=== PATIENT | male | born 1980 | race Caucasian/White ===

== ENCOUNTER 2024-06-30 19:28 | Emergency (ER) | payer MEDICAID, SELFPAY ==
[2024-06-30 19:37] VITALS: BMI 25.7
[2024-06-30 19:38] VITALS: BP 157/89; PULSE 89; RESP 19; TEMP 36.7; O2SAT 98
[2024-06-30 19:42] VITALS: PULSE 84; RESP 19; O2SAT 97
--- NOTE | 2024-06-30 19:47 | XR_ITS ---
Examination: CT brain head without contrast. 2-D sagittal coronal reconstructions Date and time of exam:June 30, 2024 2041 hrs. Indications: Patient fell today with injury to the head, head pain 6 CTDI: vol (mGy):54.7 DLP: (mGycm):1150 Technique: Multiple CT axial sections of the brain have been obtained, 5 mm slice thickness. Contrast has not been administered. 2-D sagittal, coronal reconstructions have been obtained Low dose protocols were performed. One or more of the following dose reduction techniques were used; automated exposure control, adjustment of the mA and/or KV according to patient size, use of iterative reconstruction technique. Findings: No significant ventricular enlargement. Intra-axial or extra-axial hemorrhage density is not seen. No mass effect or midline shift Basal cisterns are not remarkable. Fourth ventricle is midline. Cranial vault intact. Impression: Negative for acute hemorrhage, mass effect or midline shift
--- NOTE | 2024-06-30 19:47 | XR_ITS ---
Examination: AP chest single view Technique one AP portable upright chest single view Exam date and time: June 30, 20242049 hrs. Indications: Vomiting today. Findings: No significant cardiac enlargement No aspiration pneumonia The osseous structures are intact Impression: Negative for aspiration pneumonia
--- NOTE | 2024-06-30 19:50 | EKG_ITS ---
[facility] Test Date: 2024-06-30 Pat Name: ZOILA JUNIOR Department: Room: - Gender: Male Certified Ophthalmic Surgical Assistant: : 1980 Requested By: Indira Myles Order Number: [id number] Reading MD: Indira Myles Measurements Intervals [place] Rate: 71 P: 46 DC: 182 QRS: 5 QRSD: 92 T: 42 QT: 420 QTc: 459 Interpretive Statements SINUS RHYTHM WARNING: DATA QUALITY MAY AFFECT INTERPRETATION Compared to ECG 11/01/2021 12:55:52 Sinus tachycardia no longer present /store/S0/[id number].pdf
--- NOTE | 2024-06-30 19:50 | EDNOTE_ITS ---
ED General RME/HPI General Chief complaint: Alcohol Stated complaint: VOMITING Time Seen by Provider: 06/30/24 19:34 Arrival date/time: 06/30/24 19:28 RME / HPI RME / HPI narrative: 44-year-old male patient with significant history of hypertension, chronic alcoholism, drinking every day, was brought in by EMS for evaluation regarding vomiting. Patient has been having vomiting since earlier today, nonbloody, associated with headache and dizziness. And also sustained ground-level fall. Patient denies any head injury. Patient last alcohol intake was few minutes prior to ER visit. Denies any abdominal pain denies any other complaint. No medications was given prior to arrival. Related Data Home Medications ?Medication ?Instructions ?Recorded ?Confirmed lisinopril 40 mg tablet 40 mg PO QDAY 12/13/1912/12 Previous Rx's ?Medication ?Instructions ?Recorded meclizine 50 mg tablet 50 mg PO BID PRN dizziness # 30 tabs 06/30/24 ondansetron HCl 4 mg tablet 4 mg PO Q8H PRN nausea and 06/30/24 vomiting 5 days #20 tabs Allergies Allergy/AdvReac Type Severity Reaction Status Date / Time aspirin Allergy Unknown Verified 11/01/21 12:30 Review of Systems Review of Systems Narrative Review of Systems: Review of system reviewed and within normal limits except mentioned in HPI ED Exam Narrative Physical exam: VITAL SIGNS: Reviewed. GENERAL APPEARANCE: Alert and interactive, follows commands, no acute distress, actively vomiting HEAD AND FACE: Non-traumatic. ENT: PERRL, pink conjunctivitis, eyelid no trauma, Mucous membrane moist. NECK: Supple, nontender, no nuchal rigidity. CHEST: No tenderness, no crepitus, no paradoxical movement, no retractions. LUNGS: Clear, well ventilated, symmetric, no rales, no wheezing, no ronchi, no stridor, good breath sounds bilaterally. HEART: Regular rate, regular rhythm, no murmur, no gallops. ABDOMEN: Soft, positive bowel sounds, nondistended, no guarding, nontender, no rebound, no masses, RECTAL: Deferred. GENITAL: Deferred. NEUROLOGICAL: Gross motor function intact sensory function intact, Appropriate for age. MUSCULOSKELETAL: low back nontender, full range of motion. EXTREMITIES: Nontender, full range of motion. SKIN: Color pink, dry, no rash, no lacerations, no abrasions, no contusions. LYMPHATICS: Deferred. Course Quality Measures none Orders Category Date Time Status EKG (ED ONLY) *Do not use* NOW Care 06/30/24 19:[address] head/brain wo con Stat Exams 06/30/24 19:47 Completed EKG (ED Only) Stat Exams 06/30/24 19:50 Ordered XR chest 1V Stat Exams 06/30/24 19:47 Completed Alcohol, Blood Medical Stat Lab 06/30/24 20:43 Completed B-Type Natriuretic Peptide Stat Lab 06/30/24 20:43 Completed CBC Stat Lab 06/30/24 20:43 Completed Comprehensive Metabolic Panel Stat Lab 06/30/24 20:43 Completed Magnesium Stat Lab 06/30/24 20:43 Completed Partial Thromboplastin Time Stat Lab 06/30/24 20:43 Completed Prothrombin Time with INR Stat Lab 06/30/24 20:43 Completed Troponin I Stat Lab 06/30/24 20:43 Completed DiphenhydrAMINE INJ [Benadryl Inj] Med 06/30/24 19:49 Discontinued 50 mg IVP X1 ONE Famotidine Inj [Pepcid Inj] Med 06/30/24 19:48 Discontinued 20 mg IVP X1 ONE Meclizine HCl [Antivert] Med 06/30/24 22:18 Discontinued 50 mg PO X1 ONE Metoclopramide Inj [Reglan Inj] Med 06/30/24 19:48 Discontinued 10 mg IVP X1 ONE Sodium Chloride 0.9% 1000 ml [Ns] 1,000 ml Med 06/30/24 19:48 Discontinued IV 999 mls/hr Sodium Chloride 0.9% 1000 ml [Ns] 1,000 ml Med 06/30/24 21:35 Discontinued IV 999 mls/hr cloNIDine HCL [Catapres] Med 06/30/24 22:55 Discontinued 0.2 mg PO X1 ONE Vital Signs Vital signs: Vital Signs Temperature 98.1 F 06/30/24 19:38 Pulse Rate 89 06/30/24 19:38 Respiratory Rate 19 06/30/24 19:38 Blood Pressure 157/89 H 06/30/24 19:38 Pulse Oximetry (%) 98 06/30/24 19:38 Oxygen Delivery Method Room Air 06/30/24 19:38 [facility] Patient data External records reviewed:: None Clinical information provided by:: patient Social determinants that could affect healthcare access:: alcohol use Patient has the following chronic illnesses:: Chronic alcoholism, hypertension How is presenting disease/condition affected by chronic disease/condition?: e xacerbated by Evaluation data The following diagnostics were reviewed and interpreted by me:: lab results, radiology exam(s) and EKG tracing(s) Lab and/or radiology exams considered but not ordered:: None Interpretation Summary: EKG as interpreted by me showed sinus rhythm ventricular at 71 bpm,. OK interval 182 MS, no ST segment elevation depression noted. CT scan of the head came back unremarkable. Chest x-ray also came back normal. CBC within normal limits however CMP showed sodium 132, carbon dioxide of 14.4, chloride of 94, anion gap of 23 blood sugar is normal. Patient is having dehydration. Medications Medications considered but not ordered:: None Medication administrations:: Medication Administration History Discontinued Medications Clonidine (Clonidine Hcl 0.1 Mg Tablet) 0.2 mg PO X1 ONE Stop: 06/30/24 22:56 Diphenhydramine HCl (Diphenhydramine Inj 50 Mg/Ml Vial) 50 mg IVP X1 ONE Stop: 06/30/24 19:50 Last Admin: 06/30/24 20:45 Dose: 50 mg Documented By: EF Famotidine (Famotidine Inj 10 Mg/Ml Vial 2 Ml) 20 mg IVP X1 ONE Stop: 06/30/24 19:49 Last Admin: 06/30/24 20:45 Dose: 20 mg Documented By: EF Sodium Chloride (Ns) 1,000 mls @ 999 mls/hr IV .Q1H1M ONE Stop: 06/30/24 20:48 Last Infusion: 06/30/24 21:46 Dose: Infused Documented By: Admin: 06/30/24 20:45 Dose: 999 mls/hr Documented By: EF Sodium Chloride (Ns) 1,000 mls @ 999 mls/hr IV .Q1H1M ONE Stop: 06/30/24 22:35 Last Infusion: 06/30/24 22:42 Dose: Infused Documented By: Admin: 06/30/24 21:47 Dose: 999 mls/hr Documented By: EF Meclizine HCl (Meclizine Hcl 25 Mg Tablet) 50 mg PO X1 ONE Stop: 06/30/24 22:19 Last Admin: 06/30/24 22:39 Dose: 50 mg Documented By: EF Metoclopramide HCl (Metoclopramide Inj 5 Mg/Ml Vial 2 Ml) 10 mg IVP X1 ONE; Protocol Stop: 06/30/24 19:49 Last Admin: 06/30/24 20:45 Dose: 10 mg Documented By: EF Meclizine, Reglan, IV fluids for hydration, Benadryl, and Pepcid Consultations Consultation(s) initiated? (list below): No Diagnosis Differential Diagnosis ED Complaint MDM: Dehydration, alcohol intoxication, vomiting, dizziness, intracranial bleed Most likely diagnosis given after review of the tests above:: Dehydration, alcohol intoxication, and dizziness Admission Indicated Admission indicated?: not indicated Explain why admission is indicated or not indicated:: Stable Admission Request Was there a request for admission?: No Disposition Plan Disposition Plan: Discharge Discharge Attestation Discharge Attestation: The patient and all family members were given an opportunity to ask questions and understood the discharge instructions. Discharge instructions specifically effects, indications for sooner follow up or return to the emergency department, and the expected course of current diagnosis. Patient condition: Stable Medical Decision Making MDM Narrative MDM Narrative: 44-year-old male patient with significant history of hypertension, chronic alcoholism, drinking every day, was brought in by EMS for evaluation regarding vomiting. Patient has been having vomiting since earlier today, nonbloody, associated with headache and dizziness. And also sustained ground-level fall. Patient denies any head injury. Patient last alcohol intake was few minutes prior to ER visit. Denies any abdominal pain denies any other complaint. No medications was given prior to arrival. Patient's CMP shows significant dehydration, patient received 2 L of IV NS, medicine, Zofran, with significant improvement of symptoms, patient is sitting on the bed with no recurrence of dizziness or vomiting noted. Patient stable for discharge home Patient appears nontoxic and hemodynamically stable. Patient discharged home and instructed to follow-up with primary care provider in 24 to 48 hours. Instructed to return to the emergency department immediately if worsening of symptoms Differential Diagnosis Differential Diagnosis: Dehydration, alcohol intoxication, vomiting, dizziness, intracranial bleed Lab Data 06/30/24 20:43 06/30/24 20:43 Labs: Lab Results 06/30/24 Range/Units 20:43 WBC 4.3 (3.8-10.6) Thou/mm3 RBC 3.84 L (4.50-5.90) Miln/mm3 Hgb 14.0 (13.5-16.0) g/dL Hct 39.8 L (41.0-53.0) % MCV 104 H (80-100) fL MCH 36.5 H (25.0-35.0) pg MCHC 35.2 (31.0-37.0) g/dl RDW Std Deviation 48.4 H (35.1-43.9) fL Plt Count 230 (140-440) Thou/mm3 Neut % (Auto) 75 (37-80) % Lymph % (Auto) 13 (10-50) % [place] % (Auto) 9 (0-12) % Eos % (Auto) 1 (0-10) % Baso % (Auto) 1 (0-2.5) % Neut # (Auto) 3.3 (1.8-7.7) Thou/mm3 Lymph # (Auto) 0.6 L (1.0-4.8) Thou/mm3 [place] # (Auto) 0.4 (0.0-0.8) Thou/mm3 Eos # (Auto) 0.0 (0.0-0.5) Thou/mm3 Baso # (Auto) 0.1 (0.0-0.2) Thou/mm3 Immature Gran # (Auto) 0.04 H (0.00-0.00) Thou/mm3 Absolute Nucleated RBC 0.00 (0.00-0.00) Thou/mm3 Immature Gran % 1 H (0-0) % Nucleated RBC % 0 (0) /100 WBC PT 10.7 (9.0-12.2) Seconds INR 1.0 (0.9-1.3) APTT 24.6 (22.0-36.0) Seconds Sodium 132 L (136-145) mMol/L Potassium 4.6 (3.4-5.1) mMol/L Chloride 95 L (98-107) mMol/L Carbon Dioxide 14.4 L* (20.0-31.0) mMol/L Anion Gap 23 H (7-16) BUN 12 (9-23) mg/dL Creatinine 1.1 (0.6-1.3) mg/dL Estim Creat Clear Calc 93.1 (>60) mL/min eGFR > 60 (60 - ) See Note BUN/Creatinine Ratio 11 L (12-20) Ratio Glucose 75 (74-106) mg/dL Calculated Osmolality 263 L (275-295) Calcium 10.0 (8.3-10.6) mg/dL Corrected Calcium 10.0 (8.5-10.1) mg/dL Magnesium 1.8 (1.6-2.6) mg/dL Total Bilirubin 0.8 (0.3-1.2) mg/dL AST 81 H (0-34) U/L ALT 86 H (10-49) U/L Alkaline Phosphatase 73 (46-116) U/L Troponin I < 0.002 (0.0-0.045) ng/mL B-Natriuretic Peptide < 20 (0-100) pg/mL Total Protein 7.7 (5.7-8.2) gm/dL Albumin 4.8 (3.5-5.0) gm/dL Globulin 2.9 (2.3-3.5) gm/dL Albumin/Globulin Ratio 1.7 (1.2-2.2) Ur Collection Type Cancelled Urine Color Cancelled Urine Clarity Cancelled Urine pH Cancelled Ur Specific [place] Cancelled Urine Protein Cancelled Urine Glucose (UA) Cancelled Urine Ketones Cancelled Urine Blood Cancelled Urine Nitrite Cancelled Urine Bilirubin Cancelled Urine Urobilinogen (Auto) Cancelled Ur Leukocyte Esterase Cancelled Urine RBC Cancelled Urine WBC Cancelled Ur Squamous Epith Cells Cancelled Ur Transition Epith Cell Cancelled Ur Renal Epithelial Cell Cancelled Calcium Carbonate Cryst Cancelled Calcium Phosphate Cryst Cancelled Calcium Oxalate Crystal Cancelled Leucine Crystals Cancelled Cystine Crystals Cancelled Uric Acid Crystals Cancelled Triple Phos Crystals Cancelled Tyrosine Crystals Cancelled Amorphous Crystals Cancelled Urine Bacteria Cancelled Cellular Casts Cancelled Epithelial Casts Cancelled Fatty Casts Cancelled Hyaline Casts Cancelled Granular Casts Cancelled Waxy Casts Cancelled Broad Casts Cancelled RBC Casts Cancelled Urine Mucus Cancelled Urine Trichomonas Cancelled Ur Yeast w Hyphae Cancelled Urine Yeast (Budding) Cancelled Urine Sperm Cancelled Ur Oval Fat Bodies Cancelled Ur Culture Indicated? Cancelled Ethyl Alcohol 232.6 H (0-10.0) mg/dL Discharge Plan Plan Patient Disposition: HOME (Self Care) Disposition Comment: Stable Prescriptions/Referrals Prescriptions/Med Rec: New ondansetron HCl 4 mg tablet 4 mg PO Q8H PRN (Reason: nausea and vomiting) 5 Days Qty: 20 0RF meclizine 50 mg tablet 50 mg PO BID PRN (Reason: dizziness) Qty: 30 0RF No Action lisinopril 40 mg Tablet 40 mg PO QDAY Referrals: Dori Gooden PA-C [Primary Care Provider] - In 1 week Problem List Clinical Impression: Nausea & vomiting, Dizziness, Dehydration Patient/Caregiver Discharge Instructions Discharge Activity: activity as tolerated Education Materials: Dehydration Additional Instructions: Thank you for the opportunity for serving you today. You are stable for discharged . You are advised to: Follow-up with your PCP in 1 to 2 days Return to ED for worsening of symptoms Increase oral fluids Take medication as prescribed Print Language: Mauritian Stand Alone Forms: Bryanna Award Info., Patient Portal Info Letter BRITANY/NICOL Supervising Physician DONALDO Supervising Physician: MD Amarilys
[2024-06-30] MEDS: FAMOTIDINE INJ 10 MG/ML VIAL 2 ML 20 MG IVP (20:45)
[2024-06-30] MEDS: SODIUM CHLORIDE 0.9% 1000 ML 1,000 ML 999 ML IV ×2 (20:45→21:47)
[2024-06-30] MEDS: METOCLOPRAMIDE INJ 5 MG/ML VIAL 2 ML 10 MG IVP (20:45)
[2024-06-30] MEDS: DiphenhydrAMINE INJ 50 MG/ML VIAL IVP (20:45)
[2024-06-30 21:02] LABS: Basophils # (Auto) 0.1 Thou/mm3 (0.0-0.2); Basophils % (Auto) 1 % (0-2.5); Eosinophils % (Auto) 1 % (0-10); Hematocrit 39.8 % (41.0-53.0); Immature Granulocytes % (Auto) 1 % (0-0); Immature Granulocytes Auto 0.04 Thou/mm3 (0.00-0.00); Lymphocytes # (Auto) 0.6 Thou/mm3 (1.0-4.8); Lymphocytes % (Auto) 13 % (10-50); Mean Corpuscular HGB Conc 35.2 g/dl (31.0-37.0); Mean Corpuscular Hemoglobin 36.5 pg (25.0-35.0); Mean Corpuscular Volume 104 fL (80-100); Monocytes # (Auto) 0.4 Thou/mm3 (0.0-0.8); Monocytes % (Auto) 9 % (0-12); Neutrophils # (Auto) 3.3 Thou/mm3 (1.8-7.7); Neutrophils % (Auto) 75 % (37-80); Nucleated Red Blood Cell % 0 /100 WBC (0); Platelet Count 230 Thou/mm3 (140-440); RDW Standard Deviation 48.4 fL (35.1-43.9); Red Blood Count 3.84 Miln/mm3 (4.50-5.90); White Blood Count 4.3 Thou/mm3 (3.8-10.6)
[2024-06-30 21:10] LABS: Partial Thromboplastin Time 24.6 Seconds (22.0-36.0); Prothrombin Time 10.7 Seconds (9.0-12.2)
[2024-06-30 21:18] LABS: B-Type Natriuretic Peptide < 20 pg/mL (0-100)
[2024-06-30 21:19] LABS: Alanine Aminotransferase 86 U/L (10-49); Albumin, Serum 4.8 gm/dL (3.5-5.0); Albumin/Globulin Ratio 1.7 (1.2-2.2); Alcohol, Blood Medical 232.6 mg/dL (0-10.0); Alkaline Phosphatase 73 U/L (46-116); Anion Gap 23 (7-16); Aspartate Amino Transferase 81 U/L (0-34); BUN/Creatinine Ratio 11 Ratio (12-20); Bilirubin,Total 0.8 mg/dL (0.3-1.2); Blood Urea Nitrogen 12 mg/dL (9-23); Chloride 95 mMol/L (98-107); Creatinine (Component) 1.1 mg/dL (0.6-1.3); Estimated Creatinine Clearance 93.1 mL/min (>60); Globulin 2.9 gm/dL (2.3-3.5); Glucose 75 mg/dL (74-106); Magnesium 1.8 mg/dL (1.6-2.6); Osmolality,Calculated 263 (275-295); Potassium 4.6 mMol/L (3.4-5.1); Sodium 132 mMol/L (136-145); Total Protein 7.7 gm/dL (5.7-8.2); Troponin I < 0.002 ng/mL (0.0-0.045); eGFR > 60 See Note
[2024-06-30 21:21] LABS: Carbon Dioxide 14.4 mMol/L (20.0-31.0)
[2024-06-30] MEDS: MECLIZINE HCL 25 MG TABLET 50 MG PO (22:39)
[2024-06-30 22:48] VITALS: BP 172/108; PULSE 91; RESP 18; TEMP 36.5; O2SAT 98
[2024-06-30 23:43] VITALS: BP 150/98; PULSE 72; RESP 18; O2SAT 99
== END 2024-06-30 23:44 | disposition home or self-care (01) ==
PROVIDERS: Nurse Practitioner Family; Emergency Provider Emergency Medicine; PCP Physician Assistant
DX: E86.0 Dehydration (principal); R11.2 Nausea with vomiting, unspecified; R51.9 Headache, unspecified; I10 Essential (primary) hypertension; F10.20 Alcohol dependence, uncomplicated; Y90.7 Blood alcohol level of 200-239 mg/100 ml; W18.30XA Fall on same level, unspecified, initial encounter
CPT/HCPCS: 36415; 70450; 71045; 80053; 80307; 80320; 81001; 83735; 83880; 84484; 85025; 85610; 85730; 93005; 96361; 96374; 96375; 99284; J1200; J2765; J3490; J7030; A9270; G0480

== ENCOUNTER → 2024-10-03 | Outpatient (CLI) | payer MEDICAID, SELFPAY ==
--- NOTE | 2024-10-03 12:00 | XR_ITS ---
Examination: Abdomen sonogram, complete Date and time of exam: October 03, 2024 1151 hours INDICATIONS: Left upper and left lower abdominal pain beginning 2 years ago, worse the last month. Technique: Multiple real-time grayscale transabdominal sonographic images of the abdomen have been obtained. Findings: Normal gallbladder Normal common bile duct 0.2 cm Pancreatic head 2.3 cm Aorta not enlarged Liver 17 cm fatty infiltration Normal hepatopedal portal venous flow Patent IVC Right kidney 10.6 cm renal cortex 1.5 cm Left kidney 10.7 cm cortex 2.7 cm Mild hydronephrosis lower pole calyces left kidney Mild bilateral renal parenchymal scar formation Spleen 9.2 cm IMPRESSION: Normal gallbladder Mild hepatomegaly fatty liver Mild bilateral renal parenchyma scar formation Mild hydronephrosis lower pole calyces left kidney, this appearance can be seen with urinary tract infection, clinical correlation advised
== END | disposition home or self-care (01) ==
LOC: CDIM 11:39
PROVIDERS: PCP Physician Assistant; Referring Provider Physician Assistant; Visit Provider Physician Assistant
DX: K76.0 Fatty (change of) liver, not elsewhere classified (principal); N28.89 Other specified disorders of kidney and ureter; N13.30 Unspecified hydronephrosis
CPT/HCPCS: 76700

== ENCOUNTER 2025-04-18 10:45 | Emergency (ER) | payer MEDICAID, SELFPAY ==
[2025-04-18 10:53] VITALS: BP 168/113; PULSE 100; PULSE 94; RESP 14; TEMP 36.6; O2SAT 100; O2SAT 99; BMI 23.7
--- NOTE | 2025-04-18 11:06 | EDNOTE_ITS ---
<Statement entered by Carolyn Benton MD - 04/29/25 06:33> As co-signing physician, I was present and available for consult prn. I concur with the plan and care as documented by the midlevel provider. ED General RME/HPI General Chief complaint: Abdominal Pain Stated complaint: CONSTIPATION Time Seen by Provider: 04/18/25 11:01 Arrival date/time: 04/18/25 10:45 CC: Abdominal pain 20 pound weight loss a daily drinker of alcohol noncompliant with antihypertension medication last drink was 24 hours ago. EMS reports stable vital signs. Abdominal pain ongoing for the past 3 days. Localized pain is a 4-5 out of 10 scale. Related Data Home Medications ?Medication ?Instructions ?Recorded ?Confirmed lisinopril 40 mg tablet 40 mg PO QDAY 12/13/1912/12 Previous Rx's ?Medication ?Instructions ?Recorded meclizine 50 mg tablet 50 mg PO BID PRN dizziness # 30 tabs 06/30/24 dicyclomine 20 mg tablet 20 mg PO BID #10 tabs magnesium oxide 300 mg PO QDAY #10 tabs 07/12 Allergies Allergy/AdvReac Type Severity Reaction Status Date / Time aspirin Allergy Unknown Verified 04/18/25 10:59 Review of Systems Review of Systems Narrative Review of Systems: GEN: No fever, no chills, no weight loss EYES: No discharge, no visual changes, no pain HEENT: No ear pain, no congestion, no sore throat PULM: No shortness of breath, no cough, no congestion CV: No chest pain, no dyspnea on exertion, no palpitations GI: + nausea, + vomiting, + diarrhea, no pain, no constipation : No frequency, no urgency, no dysuria MUSC/SKEL: No joint pain, no back pain SKIN: No rash PSYCH: No hallucinations, no depression HEME/LYMPH: No easy bleeding or bruising tendencies NEURO: No weakness, no headache Past Medical History Past Medical History NEUROLOGIC: Negative Neurological Disorders CARDIAC: Positive Cardiac Disorders and Hypertension; Negative Congestive Heart Failure RESPIRATORY: Negative Chronic Obstructive Pulmonary Disease (COPD) GASTROINTESTINAL: Positive Gastrointestinal Disorders and Ulcer GENITOURINARY: Negative Genitourinary Disorders or Renal Disease MUSCULOSKELETAL: Negative Musculoskeletal Disorders ENDOCRINE: Negative Diabetes Mellitus Type 1 or Diabetes Mellitus Type 2 HEMATOLOGIC: Negative Blood Disorders Social History SMOKING STATUS: Never smoker SECOND HAND EXPOSURE: Yes SUBSTANCE USE: does not use ED Exam Narrative Physical exam: [General: In moderate discomfort not in any acute distress Head normocephalic HEENT: Eyes pupils are PERRLA EOMs intact mouth pink moist membranes uvula is midline swallow symmetrical phonation is normal. All the substance of ATTR within acceptable limits Neck is supple nontender Chest equal chest rise nontender to palpation Respiratory: Clear to auscultation no wheezes crackles or rubs CV: Rate rhythm is regular no murmurs rubs or clicks Abdomen no significant pain with deep palpation no reflexive guarding or rebound tenderness. Positive bowel sounds all 4 quadrants. Back: No CVA tenderness no spinous process tenderness from cervical spine thoracic and lumbar spine Skin: Intact no petechiae rash induration ulceration or crepitus Extremities: Moving all extremity against resistance cap refill less than 2 seconds neurosensory intact. Fine upper extremity tremens. Neuro: Awake alert oriented x3 Glascow coma 15 no focal deficits] Course Quality Measures none Orders Category Date Time Status EKG (ED ONLY) *Do not use* NOW Care 04/18/25 11:13 Completed Saline [Insert IV] NOW Care 04/18/25 11:[address] abdomen pelvis wo con Stat Exams 04/18/25 11:13 Completed EKG (ED Only) Stat Exams 04/18/25 11:13 Draft Alcohol, Blood Medical Stat Lab 04/18/25 11:19 Completed B-Type Natriuretic Peptide Stat Lab 04/18/25 11:19 Completed CBC Stat Lab 04/18/25 11:19 Completed Comprehensive Metabolic Panel Stat Lab 04/18/25 11:19 Completed Drug Screen,Urine Stat Lab 04/18/25 14:10 Completed LDH (Lactate Dehydrogenase) Stat Lab 04/18/25 11:19 Completed Lipase Stat Lab 04/18/25 11:19 Completed Magnesium Stat Lab 04/18/25 11:19 Completed Partial Thromboplastin Time Stat Lab 04/18/25 11:19 Completed Prothrombin Time with INR Stat Lab 04/18/25 11:19 Completed Troponin I Stat Lab 04/18/25 11:19 Completed Urinalysis, C/S if Indicated Stat Lab 04/18/25 14:10 Completed Diazepam Inj [Valium Inj] Med 04/18/25 11:13 Discontinued 10 mg IVP X1 ONE Diazepam Inj [Valium Inj] Med 04/18/25 15:45 Discontinued 10 mg IVP X1 ONE Folic Acid Inj Med 04/18/25 11:13 Discontinued 1 mg IVP X1 ONE Magnesium Sulfate 4 GM Ivpb [Magnesium Sulfate Ivpb] Med 04/18/25 13:29 Discontinued 4 gm in 50 ml IV X1 Sodium Chloride 0.9% 1000 ml [Ns] 1,000 ml Med 04/18/25 11:14 Discontinued IV 999 mls/hr Thiamine Inj [Vitamin B-1 Inj] Med 04/18/25 11:30 Discontinued 100 mg IVP X1 ONE Thiamine Inj [Vitamin B-1 Inj] 100 mg Med 04/18/25 11:14 Discontinued Sodium Chloride 0.9% [Ns] 100 ml IV X1 hydrALAZINE INJ [Apresoline Inj] Med 04/18/25 11:13 Discontinued 20 mg IVP X1 ONE Vital Signs Vital signs: Vital Signs Temperature 97.9 F 04/18/25 10:53 Pulse Rate 94 04/18/25 10:53 Respiratory Rate 14 04/18/25 10:53 Blood Pressure 168/113 H 04/18/25 10:53 Pulse Oximetry (%) 100 04/18/25 10:53 Oxygen Delivery Method Room Air 04/18/25 10:53 Discharge Plan Plan Patient Disposition: HOME (Self Care) Patient condition on transfer: Stable Prescriptions/Referrals Prescriptions/Med Rec: New dicyclomine 20 mg tablet 20 mg PO BID Qty: 10 0RF magnesium oxide 300 mg magnesium tablet 300 mg PO QDAY Qty: 10 0RF No Action lisinopril 40 mg Tablet 40 mg PO QDAY meclizine 50 mg tablet 50 mg PO BID PRN (Reason: dizziness) Qty: 30 0RF Referrals: No Primary/Family,Physician [Primary Care Provider] - In 1 week Problem List Clinical Impression: Abdominal pain, Alcohol dependence, Hypomagnesemia Patient/Caregiver Discharge Instructions Education Materials: Abdominal Pain, Alcoholism: Myths and Facts, Alcoholism: Getting Help, Alcohol Addiction Additional Instructions: Try and eat 3 square meals a day. Cut back on your alcohol consumption and follow-up with your primary care doctor. Take the medications as prescribed. Print Language: Guatemalan Stand Alone Forms: Bryanna Award Info., Patient Portal Info Letter MDM Clinical Information Provided by: patient Medical Records reviewed [facility] Meds/Rx considered, not ordered None Labs/Rad/Tests considered, not ordered None Chronic Illness/Social Conditions Explain: Diabetes hypertension EKG EKG not done Labs Labs: interpreted by me Imaging Imaging interpretation: interpreted by me Medication Administration(s) Medication Administration History Discontinued Medications Diazepam (Diazepam Inj 5 Mg/Ml Vial 2 Ml) 10 mg IVP X1 ONE Stop: 04/18/25 11:14 Last Admin: 04/18/25 11:40 Dose: 10 mg Documented By: TM Diazepam (Diazepam Inj 5 Mg/Ml Vial 2 Ml) 10 mg IVP X1 ONE Stop: 04/18/25 15:46 Last Admin: 04/18/25 16:44 Dose: 10 mg Documented By: TM Folic Acid (Folic Acid Inj 1 Mg/0.2 Ml) 1 mg IVP X1 ONE Stop: 04/18/25 11:14 Last Admin: 04/18/25 12:10 Dose: 1 mg Documented By: TM Hydralazine HCl (Hydralazine Inj 20 Mg/Ml Vial) 20 mg IVP X1 ONE Stop: 04/18/25 11:14 Last Admin: 04/18/25 11:39 Dose: 20 mg Documented By: TM Sodium Chloride (Ns) 1,000 mls @ 999 mls/hr IV .Q1H1M ONE Stop: 04/18/25 12:14 Last Infusion: 04/18/25 12:42 Dose: Infused Documented By: Admin: 04/18/25 11:41 Dose: 999 mls/hr Documented By: TM Thiamine HCl 100 mg/ Sodium (Chloride) 101 mls @ 202 mls/hr IV X1 ONE Stop: 04/18/25 11:43 Last Admin: 04/18/25 11:47 Dose: Not Given Documented By: TM Non-Admin Reason: Discontinued Magnesium Sulfate (Magnesium Sulfate Ivpb) 4 gm in 50 mls @ 12.5 mls/hr IV X1 ONE Stop: 04/18/25 17:28 Last Infusion: 04/18/25 17:05 Dose: Infused Documented By: Admin: 04/18/25 13:44 Dose: 12.5 mls/hr Documented By: TM Thiamine HCl (Thiamine Inj 100 Mg/Ml Vial 2 Ml) 100 mg IVP X1 ONE Stop: 04/18/25 11:31 Last Admin: 04/18/25 11:40 Dose: 100 mg Documented By: TM
--- NOTE | 2025-04-18 11:13 | XR_ITS ---
Examination: CT abdomen and pelvis without contrast. Coronal 3-D reconstructions. Sagittal 2-D reconstructions. Date and time of exam: April 18, 2025, 1124 hours INDICATIONS: Lower abdominal pain and rectal pain onset today. CTDI: vol (mGy): 6.49 DLP: (mGycm): 407 Technique: Axial images of the abdomen have been obtained, 3 mm slice thickness Intravenous contrast material has not been administered. Low dose protocols were performed. One or more of the following dose reduction techniques were used; automated exposure control, adjustment of the mA and/or KV according to patient size, use of iterative reconstruction technique. Findings: Severe diffuse fatty infiltration throughout the liver with hepatomegaly, 20 cm No splenic pancreatic or adrenal mass lesion Mild renal scar formation No renal or ureteral calculi No pancreatic mass Edema in the mesentery for instance axial image 115 Normal appendix No bowel obstruction No diverticulitis No prostatomegaly Contracted urinary bladder with urinary bladder wall thickening Moderate to advanced disc narrowing L5-S1 IMPRESSION: Hepatomegaly with severe diffuse fatty infiltration throughout the liver Mild renal scar formation Normal appendix Edema in the mesentery, consider mesenteric panniculitis No bowel obstruction Suspicious for mild cystitis
--- NOTE | 2025-04-18 11:13 | EKG_ITS ---
[facility] Test Date: 2025-04-18 Pat Name: ZOILA JUNIOR Department: Room: - Gender: Male [employer] Principal: : [id number] Requested By: Fausto Tierney Order Number: [id number] Reading MD: Fausto Tierney Measurements Intervals [place] Rate: 112 P: 41 CA: 169 QRS: 11 QRSD: 83 T: 24 QT: 331 QTc: 452 Interpretive Statements SINUS TACHYCARDIA ABNORMAL RHYTHM ECG Compared to ECG 06/30/2024 22:12:22 Sinus rhythm no longer present /[id number]/[email or web address]/[id number].pdf
[2025-04-18 11:39] VITALS: BP 166/106; PULSE 91
[2025-04-18] MEDS: hydrALAZINE INJ 20 MG/ML VIAL IVP (11:39)
[2025-04-18] MEDS: DIAZEPAM INJ 5 MG/ML VIAL 2 ML 10 MG IVP ×2 (11:40→16:44)
[2025-04-18] MEDS: THIAMINE INJ 100 MG/ML VIAL 2 ML IVP (11:40)
[2025-04-18] MEDS: SODIUM CHLORIDE 0.9% 1000 ML 1,000 ML 999 ML IV (11:41)
[2025-04-18 11:45] LABS: Basophils # (Auto) 0.1 Thou/mm3 (0.0-0.2); Basophils % (Auto) 1 % (0-2.5); Eosinophils # (Auto) 0.0 Thou/mm3 (0.0-0.5); Eosinophils % (Auto) 0 % (0-10); Hematocrit 32.6 % (41.0-53.0); Hemoglobin 11.4 g/dL (13.5-16.0); Immature Granulocytes Auto 0.02 Thou/mm3 (0.00-0.00); Lymphocytes # (Auto) 0.8 Thou/mm3 (1.0-4.8); Lymphocytes % (Auto) 16 % (10-50); Mean Corpuscular HGB Conc 35.0 g/dl (31.0-37.0); Mean Corpuscular Hemoglobin 36.8 pg (25.0-35.0); Mean Corpuscular Volume 105 fL (80-100); Monocytes # (Auto) 0.5 Thou/mm3 (0.0-0.8); Monocytes % (Auto) 11 % (0-12); Neutrophils # (Auto) 3.4 Thou/mm3 (1.8-7.7); Neutrophils % (Auto) 71 % (37-80); Nucleated Red Blood Cell # 0.00 Thou/mm3 (0.00-0.00); Nucleated Red Blood Cell % 0 /100 WBC (0); Platelet Count 163 Thou/mm3 (140-440); RDW Standard Deviation 48.7 fL (35.1-43.9); Red Blood Count 3.10 Miln/mm3 (4.50-5.90); White Blood Count 4.8 Thou/mm3 (3.8-10.6)
[2025-04-18 12:01] LABS: INR 1.0 (0.9-1.3); Partial Thromboplastin Time 24.5 Seconds (22.0-36.0); Prothrombin Time 10.4 Seconds (9.0-12.2)
[2025-04-18] MEDS: FOLIC ACID INJ 1 MG/0.2 ML IVP (12:10)
[2025-04-18 12:19] VITALS: BP 144/91; PULSE 114
[2025-04-18 12:30] LABS: B-Type Natriuretic Peptide 33 pg/mL (0-100)
[2025-04-18 13:23] LABS: Alanine Aminotransferase 105 U/L (10-49); Albumin, Serum 4.8 gm/dL (3.5-5.0); Albumin/Globulin Ratio 2.1 (1.2-2.2); Alcohol, Blood Medical 63.2 mg/dL (0-10.0); Alkaline Phosphatase 81 U/L (46-116); Anion Gap 17 (7-16); Aspartate Amino Transferase 83 U/L (0-34); BUN/Creatinine Ratio 10 Ratio (12-20); Bilirubin,Total 1.4 mg/dL (0.3-1.2); Blood Urea Nitrogen 10 mg/dL (9-23); Calcium 9.0 mg/dL (8.3-10.6); Calcium (Corrected) 9.0 mg/dL (8.5-10.1); Carbon Dioxide 25.0 mMol/L (20.0-31.0); Chloride 101 mMol/L (98-107); Creatinine (Component) 1.0 mg/dL (0.6-1.3); Estimated Creatinine Clearance 98.3 mL/min (>60); Globulin 2.3 gm/dL (2.3-3.5); Glucose 93 mg/dL (74-106); LDH (Lactate Dehydrogenase) 282 U/L (120-246); Lipase 75 U/L (12-53); Magnesium 1.0 mg/dL (1.6-2.6); Osmolality,Calculated 283 (275-295); Potassium 3.3 mMol/L (3.4-5.1); Sodium 143 mMol/L (136-145); Total Protein 7.1 gm/dL (5.7-8.2); Troponin I < 0.020 ng/mL (0.0-0.045); eGFR > 60 See Note
[2025-04-18] MEDS: Magnesium Sulfate 4 GM Ivpb 4 GM/50 ML BAG IV (13:44)
[2025-04-18 14:00] VITALS: BP 166/96; PULSE 110; RESP 17; TEMP 36.6; O2SAT 100
--- NOTE | 2025-04-18 14:01 | PC.NURSE ---
Resuming pt care to relieve primary RN for lunch break. Pt awake, alert and oriented.
[2025-04-18 14:24] LABS: Collection Type, Urine Clean Catch
[2025-04-18 14:30] LABS: Bacteria,Urine Rare; Bilirubin,Urine Negative (Negative); Blood,Urine Negative (Negative); Clarity,Urine Turbid (Clear/Hazy); Color,Urine Lt-Yellow (Lt Yel-Yel); Culture Indicated,Urine Not Indicated; Glucose, Urine Negative (Negative); Hyaline Casts,Urine 1 /hpf (0-1); Ketones,Urine 1+ (Negative); Leukocyte Esterase,Urine Negative (Negative); Nitrite,Urine Negative (Negative); PH,Urine 6.5 (5.0-7.0); Protein,Urine Negative (Neg - Trace); RBC,Urine 4 /hpf (0-3); Specific Gravity,Urine 1.013 (1.001-1.035); Squamous Epithelial Cell,Urine < 1 /hpf (0-5); Urobilinogen,Urine 3.0 mg/dL (0.0-1.0); WBC,Urine 3 /hpf (0-5)
[2025-04-18 14:42] LABS: Amphetamine/Methamp Scrn,U Negative (Negative); Barbiturate Screen,Urine Negative (Negative); Benzodiazepines Screen,Urine Negative (Negative); Benzoylecgonine Screen, Ur Negative (Negative); Fentanyl Screen,Urine Negative (Negative); Opiate Screen,Urine Negative (Negative); THC Screen,Urine Negative (Negative)
[2025-04-18 16:00] VITALS: BP 141/99; PULSE 111; RESP 18; TEMP 36.7; O2SAT 98
[2025-04-18 17:00] VITALS: BP 145/94; PULSE 107; RESP 15; O2SAT 99
== END 2025-04-18 17:13 | disposition home or self-care (01) ==
PROVIDERS: Registered Nurse General Practice; Emergency Provider Emergency Medicine
DX: F10.20 Alcohol dependence, uncomplicated (principal); E83.42 Hypomagnesemia; R10.30 Lower abdominal pain, unspecified; Z91.148 Patient's other noncompliance with medication regimen for other reason; R63.4 Abnormal weight loss; T46.4X6A Underdosing of angiotensin-converting-enzyme inhibitors, initial encounter; Z91.128 Patient's intentional underdosing of medication regimen for other reason; Y90.3 Blood alcohol level of 60-79 mg/100 ml
CPT/HCPCS: 36415; 74176; 80053; 80307; 80320; 81001; 83615; 83690; 83735; 83880; 84484; 85025; 85610; 85730; 93005; 96361; 96365; 96366; 96375; 96376; 99284; J0360; J3360; J3411; J3475; J3490; J7030; G0480